=== PATIENT | male | born 1960 | race Caucasian/White ===

== ENCOUNTER 2020-11-07 07:31 | Emergency (ER) | payer BC, SELFPAY ==
[2020-11-07 07:31] VITALS: BP 162/100; PULSE 61; RESP 16; TEMP 36.7; O2SAT 98; BMI 40.1
[2020-11-07 07:35] VITALS: BP 162/109; PULSE 68; O2SAT 94
--- NOTE | 2020-11-07 07:46 | CT_ITS ---
PROCEDURE: CT ABDOMEN PELVIS W CON CLINICAL INDICATION: right testicle pressure and right flank pain COMPARISON: No exams were available for comparison TECHNIQUE: IV Contrast: 75ML Isovue 370 Oral Contrast None Axial images obtained with sagittal and coronal reformats. All CT scans at the facility use one or more dose reduction, viz: automated exposure control, ma/kV adjustment per patient size (including targeted exams where dose is matched to indication, i.e. head), or iterative reconstruction technique. FINDINGS: LOWER THORAX: There is elevation of the hemidiaphragm on both sides with atelectatic changes in the lung bases. ABDOMEN & PELVIS: Fatty liver. This is somewhat more prominent in the hepatic dome on the right. There is a hypodense lesion in the hepatic dome segment 7 measuring 15 mm with peripheral enhancement and may be due to a hemangioma. No other liver lesions evident. The spleen, adrenal glands, and pancreas have an unremarkable appearance. There is minimal dilatation of the right renal collecting system and ureter. There is a 2 mm stone along the right aspect of the urinary bladder at the trigone region consistent with a stone at the trigone/ureterovesical junction. Urinary bladder is contracted with mild thickening of the wall. No left renal or ureteral calculi are evident. There is a 13 mm right renal cyst in the upper pole. No intestinal obstruction or free air. There is given history of appendectomy. No evidence of diverticulitis. Mild prominence of the prostate at 4.9 cm. Prior vasectomy. Mild degenerative changes in the spine. Sclerotic focus is present in the left supra-acetabular region may be due to small bone island. There are small bilateral inguinal hernias containing fat IMPRESSION: 2 mm stone at the trigone of the urinary bladder on the right consistent with a stone at the UVJ or recently passed with mild dilatation of the right renal collecting system and ureter. Indeterminate 1.5 cm lesion of the right hepatic lobe possibly due to a hemangioma. Nonemergent MRI with hemangioma protocol may confirm Dictated by: Jaron Rodriguez MD 11/07/2020 10:32 Jaron Rodriguez MD in [place] 11/07/2020 10:32
[2020-11-07 08:00] LABS: Basophils # 0.1 K/mm3 (0-0.2); Basophils % 0.8 % (0.1-2.0); Eosinophils # 0.2 K/mm3 (0.0-0.4); Eosinophils % 2.5 % (0.1-12.0); Hematocrit 47.8 % (42.0-52.0); Hemoglobin 16.7 g/dL (14.1-18.0); Lymphocytes # 2.1 K/mm3 (0.7-4.5); Lymphocytes % 27.3 % (10-50); Mean Corpuscular HGB Conc 34.9 g/dL (31.8-35.4); Mean Corpuscular Hemoglobin 32.5 pg (27.0-31.2); Mean Platelet Volume 8.4 fl (7.4-10.4); Monocytes # 0.5 K/mm3 (0.1-1.0); Monocytes % 6.1 % (1.7-9.3); Neutrophils # 4.9 K/mm3 (1.8-7.8); Neutrophils % 63.4 % (37.0-80.0); Platelet Count 219 K/mm3 (142-424); Red Blood Count 5.14 M/mm3 (4.60-6.20); Red Cell Distribution Width 13.9 % (11.5-17.5); White Blood Count 7.7 K/mm3 (4.8-10.8)
[2020-11-07 08:04] LABS: Microscopic, Urine URINE MICROSCOPIC (MICROSCOPIC)
[2020-11-07 08:13] LABS: Appearance,Urine CLEAR (Clear); Bilirubin,Urine Negative (Negative); Blood, Urine TRACE-I (Negative); Color,Urine YELLOW (Yellow); Glucose,Urine (UA) Negative (Negative); Ketones,Urine Negative (Negative); Leukocyte Esterase,Urine Negative (Negative); Nitrate,Urine Negative (Negative); PH,Urine 5.5 (5.0-8.5); Protein,Urine Negative (Negative); Specific Gravity, Urine >= 1.030 (1.005-1.030); Urobilinogen,Urine 0.2 EU/dl (0.2)
--- NOTE | 2020-11-07 08:17 | PC.NURSE ---
NOTIFIED RADIOLOGY BEING ORDERED ON PATIENT
[2020-11-07 08:24] LABS: Alanine Aminotransferase 53 U/L (12-78); Albumin Level 4.7 g/dl (3.5-5.0); Albumin/Globulin Ratio 1.5 (1.1-1.8); Alkaline Phosphatase 111 U/L (38-126); Anion Gap 16.3 mEq/L (5-15); Aspartate Amino Transferase 34 U/L (17-59); Bilirubin,Total 0.8 mg/dl (0.2-1.3); Blood Urea Nitrogen 13 mg/dl (9-20); Calcium 9.4 mg/dl (8.4-10.2); Carbon Dioxide 25 mmol/L (22.0-30.0); Chloride 106 mmol/L (98-107); Creatinine Clearance Estimated 95 mL/min (50-200); Estimated Glomerular Filt Rate 48 ml/min (>60); GFR (African American) 58 ML/MIN (>60); Globulin 3.1 g/dL (1.3-3.2); Glucose 119 mg/dl (74-100); Potassium 4.3 mmoL/L (3.5-5.1); Sodium 143 mmol/L (136-145); Total Protein,Serum 7.8 g/dl (6.3-8.2)
--- NOTE | 2020-11-07 08:43 | PC.NURSE ---
CT STATED THEY HAVE A PROCEDURE ON THE TABLE IS WHY PATIENT HAS NOT WENT TO CT YET AT THIS TIME
[2020-11-07 09:00] VITALS: BP 143/71; PULSE 71; RESP 18; O2SAT 97
--- NOTE | 2020-11-07 09:03 | HMH.ITSTN ---
ct scan delayed due to coronary patient still on table.
--- NOTE | 2020-11-07 09:06 | PC.NURSE ---
Dr Lopez at bedside
--- NOTE | 2020-11-07 09:08 | HMH.EDUROGM ---
ED Disposition Clinical Impression: Renal colic on right side Disposition: Home, Self-Care Condition on Discharge: Good Instructions: DI for Kidney Stones Additional Instructions: fluids and see pcp and urology for follow up Prescriptions: Tamsulosin HCl [Flomax 0.4mg capsule] 0.4 mg PO HS #10 cap Transmission Status: Pending to [facility] Ketorolac Tromethamine [Toradol 10mg tablet] 10 mg PO Q6HP PRN #8 tab MDD 40mg/day PRN Reason: Moderate To Severe Pain Transmission Status: Pending to [facility] Referrals: Per Mcleod MD [Primary Care Provider] - - Critical Care Critical Care Time: No Attestation: On 11/07/20, the high probability of a clinically significant, sudden or life threatening deterioration of the following system(s) required my full and direct attention, intervention and personal management. The time I documented below is in addition to time spent performing reported procedures but includes the following listed in this critical care notation. Medical Decision Making - Medical Records Medical records reviewed: Yes: I reviewed the patient's medical records. - Nomi Inquiry Pt receiving controlled substance: No Vital Signs: 11/07/20 07:31 11/07/20 07:35 11/07/20 09:00 Temperature 98.1 F Temperature Source Oral Pulse Rate 68 71 Pulse Rate [Right] 61 Respiratory Rate 16 18 Blood Pressure 162/109 H 143/71 H Blood Pressure [Right Arm] 162/100 H Blood Pressure Mean 135 Blood Pressure Mean [Right Arm] 120 02 Sat by Pulse Oximetry 98 94 L 97 Oxygen Delivery Method Room Air Room Air - Lab Data Lab results reviewed: Yes: I reviewed the patient's lab results. Lab Results 11/07/20 07:45: WBC 7.7, RBC 5.14, Hgb 16.7, Hct 47.8, MCV 93.0, MCH 32.5 H, MCHC 34.9, RDW 13.9, Plt Count 219, MPV 8.4, Neut % (Auto) 63.4, Lymph % (Auto) 27.3, [place] % (Auto) 6.1, Eos % (Auto) 2.5, Baso % (Auto) 0.8, Neut # (Auto) 4.9, Lymph # (Auto) 2.1, [place] # (Auto) 0.5, Eos # (Auto) 0.2, Baso # (Auto) 0.1 11/07/20 07:45: Sodium 143, Potassium 4.3, Chloride 106, Carbon Dioxide 25, Anion Gap 16.3 H, BUN 13, Creatinine 1.50 H, Estimated Creat Clear 95, Estimated GFR 48 L, Est GFR ( Amer) 58 L, Glucose 119 H, Calcium 9.4, Total Bilirubin 0.8, AST 34, ALT 53, Alkaline Phosphatase 111, Total Protein 7.8, Albumin 4.7, Globulin 3.1, Albumin/Globulin Ratio 1.5 11/07/20 07:59: Urine Color Yellow, Urine Appearance Clear, Urine pH 5.5, Ur Specific [place] >= 1.030, Urine Protein Negative, Urine Glucose (UA) Negative, Urine Ketones Negative, Urine Blood Trace-i, Urine Nitrate Negative, Urine Bilirubin Negative, Urine Urobilinogen 0.2, Ur Leukocyte Esterase Negative, Urine RBC 3-5, Urine WBC 3-5, Ur Squamous Epith Cells 5-10, Urine Bacteria None Result diagrams: 11/07/20 07:45 11/07/20 07:45 Orders (Tests/Meds): ED MEDICATIONS Discontinued Medications Generic Name Dose Route Start Last Admin Trade Name Freq PRN Reason Stop Dose Admin Sodium Chloride 1,000 mls @ 999 mls/hr 11/07/20 08:00 11/07/20 07:55 Sod Chlor 0.9% 1000ml Bag IV 11/07/20 09:00 999 mls/hr .Q1H1M LILLIAM Administration Iopamidol 75 ml 11/07/20 09:54 11/07/20 09:54 Iopamidol-370 (76%);100ml Bottle IV 11/07/20 09:55 75 ml ONCE ONE Administration Ketorolac Tromethamine 30 mg 11/07/20 07:52 11/07/20 07:55 Ketorolac 30mg/Ml Vial IV 11/07/20 07:53 30 mg ONCE ONE Administration Ondansetron HCl 4 mg 11/07/20 07:52 11/07/20 07:55 Ondansetron 4mg/2ml Vial IV 11/07/20 07:53 4 mg ONCE ONE Administration - CT Data CT Scan: Abdomen, Pelvis Time Received: 10:[address] Reviewed: Yes: I have viewed the radiologist's interpretation Preliminary Findings: Abnormal (see report ) Medical Decision Narrative: will refer to urology and fluids Male Urogenital HPI - General Chief complaint: Urogenital-Male Stated complaint: possible kidney stones Time Seen by Provider:
--- NOTE | 2020-11-07 09:35 | PC.NURSE ---
PATIENT TO CT AT THIS TIME
--- NOTE | 2020-11-07 09:59 | PC.NURSE ---
Pt back from CT scan at this time.
[2020-11-07 10:50] VITALS: BP 154/71; PULSE 75; RESP 17; TEMP 36.8; O2SAT 97
== END 2020-11-07 11:00 | disposition home or self-care (01) ==
PROVIDERS: Family Medicine; Emergency Provider Emergency Medicine; PCP Family Medicine
DX: N23 Unspecified renal colic (principal); Z87.442 Personal history of urinary calculi; I10 Essential (primary) hypertension; E78.5 Hyperlipidemia, unspecified
CPT/HCPCS: 74177; 80053; 81001; 85025; 96365; 99283; J2405; Q9967

== ENCOUNTER 2023-12-03 07:50 | Day surgery (SDC) | payer BC, SELFPAY ==
--- NOTE | 2023-12-01 11:43 | SUR.PREOP ---
PREOP CALL ATTEMPTED. BOTH PT'S NUMBER AND CONTACT NUMBER DISCONNECTED.
--- OUTSIDE RECORDS SUMMARY | 2023-12-03 07:54 | XMS_ITS | Clinical Summary ---
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 Other infective (teno)synovitis , right wrist Infective (teno)synovi tis, right wrist (document bacterial agent) M65.131 (ICD-10-CM ) 10/13 Removed 10/13 Francheska Martinez Other infective (teno)synovitis , right wrist Radius, right, initial encounter, infection/in flammatory reaction due to internal fixation device T84.612A (ICD-10-CM ) 10/13 Inactive 10/13 Francheska Martinez Infection and inflammatory reaction due to internal fixation device of right radius, initial encounter Cellulitis of right wrist L03.113 (ICD-10-CM ) 10/13 Active 10/13 Francheska Martinez Cellulitis of right upper limb Medications Medication Instructions Start Date Stop Date Generic Name NDC Provider LINEZOLID 600 MG TABS Take 1 tablet by mouth twice daily LINEZOLID 11052609546 Alexi Kan MD. TEFLARO 600 MG SOLR q 12 HOURS/OPAT CEFTAROLINE FOSAMIL [id number] Georgina Christianson RN LINEZOLID 600 MG TABS Take 1 tablet by mouth twice daily LINEZOLID 85642324507 Alexi Kan MD. HYDROCODONE-ACET AMINOPHEN 5-325 MG TABS one tab p q6h prn for pain HYDROCODONE-ROSALBA TAMINOPHEN 58513157428 Alexi Kan MD. INDOMETHACIN ER 75 MG CR-CAPS one tab po bid INDOMETHACIN 47372980037 Alexi Kan MD. HYDROXYZINE HCL 25 MG TABS one tab po tid prn for itching HYDROXYZINE HCL 77498234754 Alexi Kan MD. TEFLARO 600 MG SOLR q 12 HOURS/OPAT CEFTAROLINE FOSAMIL 21371478968 Georgina Christianson RN CUBICIN RF SOLR Cubicin 500mg IV Q24hrs OPAT DAPTOMYCIN SOLR 18593413511 Alexi Kan MD. HYDROXYZINE HCL 25 MG TABS one tab po tid prn for itching HYDROXYZINE HCL 69287443307 Alexi Kan MD. CUBICIN RF SOLR Cubicin 500mg IV Q24hrs OPAT DAPTOMYCIN SOLR 27421354588 Georgina Christianson RN CEFTRIAXONE SODIUM (IV) SOLR Rocephin 2GM IV Q24hrs Inpat CEFTRIAXONE SODIUM SOLR 39664791635 Georgina Christianson RN CEFTRIAXONE SODIUM (IV) SOLR Rocephin 2GM IV Q24hrs Inpat CEFTRIAXONE SODIUM SOLR 52270648446 Margareth Turcios CUBICIN RF SOLR Cubicin 500mg IV Q24hrs Inpat DAPTOMYCIN SOLR 17460421773 Margareth Turcios HYDROCODONE-ACET AMINOPHEN 5-325 MG TABS one tab p q6h prn for pain HYDROCODONE-ROSALBA TAMINOPHEN 79985340647 Alexi Kan MD. INDOMETHACIN ER 75 MG CR-CAPS one tab po bid INDOMETHACIN 61441969679 Alexi Kan MD. ASPIRIN ADULT LOW DOSE 81 MG TBEC Once daily. ASPIRIN 36072625125 Alexi Kan MD. ATORVASTATIN CALCIUM 80 MG TABS 1/2 tab daily. ATORVASTATIN CALCIUM 79408857777 Alexi Kan MD. LISINOPRIL 10 MG TABS Once daily. LISINOPRIL [id number] Alexi Kan MD. Medications Administered No information available. Allergies, Adverse Reactions, Alerts Allergy Name Reaction Description Start Date Severity Statu s Provider DAPTOMYCIN rash Severe Active Alexi Kan MD. Results Date Name Value Unit Range Flag Description Lab Report: CK CPK 30 U/L 26-174 Creatine christina se [Enzymatic activity/volume] in Serum or Plasma Lab Report: CBC WITH AUTO DI FFERENTIAL IMMATUREGRAN 0.01 10*3/MM3 0.00-0.03 Immature granulocytes [#/volume] in Blood BASO# 0.05 10*3/mm3 0.00-0.20 Basophils [#/vol ume] in Blood EOS ABSLT 0.30 10*3/uL 0.00-0.30 Eosinophi ls [#/volume] in Blood MONOSCT AUTO 0.61 10*3/uL 0.00-1.00 Monocy filiberto [#/volume] in Blood by Automated count LYMPHCT AUTO 1.74 10*3/mm3 0.60-4.80 Lymph ocytes [#/volume] in Blood by Automated count ABS NEUTROPH 3.75 10*3/uL 1.50-8.30 Neutro phils [#/volume] in Blood IMM GRANU % 0.2 % 0.0-0.6 Immature granulocytes/100 leukocytes in Blood [id number]-GE-[id number] 0.8 % 0.0-1.0 GE use only - for [employer] import when terms are not otherwise specified % EOS AUTO 4.6 % 0.0-3.0 H Eosinophil s/100 leukocytes in Blood by Automated count MONOCYTE BF 9.4 % 0.0-12.0 monocyte s as percent of body fluid leukocytes LYMPHOCY BF 26.9 % 24.0-44.0 lymphoc ytes as percent of body fluid leukocytes PMN % 58.1 % 41.0-71.0 Neutrophils /100 leukocytes in Blood by Automated count PLATELETS 179 10*3/mm3 150-450 Platelets [#/volume] in Blood by Automated count RDW_ 13.0 11.3-14.5 RDW, no uni ts MCHC 33.7 G/DL 32.0-36.0 MCHC [Mass/ volume] by Automated count MCH 31.4 pg 27.0-31.0 H MCH [Entiti c mass] by Automated count MCV 93.3 fL 80.0-99.0 MCV [Entiti c volume] by Automated count HCT 38.9 % 38.9-50.9 Hematocrit [Volume Fraction] of Blood by Automated count HGB 13.1 g/dL 13.1-17.5 Hemoglobin [Mass/volume] in Blood RBC 4.17 10*6/mm3 4.20-5.76 L Erythrocyt es [#/volume] in Blood by Automated count WBC 6.46 10*3/mm3 3.50-10.8 0 Leukocytes [#/volume] in Blood by Automated count Lab Report: SEDIMENTATION RA TE ESR 24 mm/h 0-20 H Erythrocyte sedimentation rate by Westergren method Lab Report: C-REACTIVE PROTE IN CRP 0.19 mg/dL 0.00-1.00 C reactive protein [Mass/volume] in Serum or Plasma Lab Report: COMPREHENSIVE NH TABOLIC PANEL ANIONGAP 6.0 mmol/L 3.0-11.0 anion gap, serum BUN/CREAT 12.5 7.0-25.0 Urea nitrogen/Creatinine [Mass Ratio] in Serum or Plasma GFRC 58 mL/min/1. 73m2 >60 L Glomerular Filtration Rate Calculation BILI TOTAL 0.7 mg/dL 0.3-1.2 Bilirubin. total [Mass/volume] in Serum or Plasma ALK PHOS 83 U/L 25-100 Alkaline amelia sphatase [Enzymatic activity/volume] in Blood SGOT (AST) 16 U/L 0-33 Aspartate aminotransferase [Enzymatic activity/volume] in Serum or Plasma SGPT (ALT) 17 U/L 7-40 Alanine aminotransferase [Enzymatic activity/volume] in Serum or Plasma ALBUMIN 3.81 g/dL 3.20-4.80 Albumin [Mass/volume] in Serum or Plasma PROTEIN, TOT 6.8 g/dL 5.7-8.2 Protein [Mass/volume] in Serum or Plasma CALCIUM 9.1 mg/dL 8.7-10.4 Calcium [Moles/volume] in Serum or Plasma CO2 27.0 mmol/L 20.0-31.0 Carbon diox orquidea, total [Moles/volume] in Venous blood CHLORIDE 108 mmol/L 99-109 Chloride [Moles/volume] in Serum or Plasma POTASSIUM 4.2 mmol/L 3.5-5.5 Potassium [Moles/volume] in Serum or Plasma SODIUM 141 mmol/L 132-146 Sodium [Moles/volume] in Serum or Plasma CREATININE 1.28 mg/dL 0.60-1.30 Creatini ne [Mass/volume] in Serum or Plasma BUN 16 mg/dL 9-23 Urea nitrogen [Mass/volume] in Serum or Plasma GLUCOSE SER 63 mg/dL 70-100 L Glucose [Mass/volume] in Serum or Plasma Office Visit: 7 MEDS REVIEW Done Documenta tion of current medications (procedure) DIET TRAFFIC CONTROL OFFICER yes Dietary management education, guidance, and counseling (procedure) ORALTOBACUSE Never Tobacco smoking status SMOK STATUS Never smoker Tobacco smoking status Plan of Care Type Date Detail Pending order Discontinue oral antibiotics Pending order Continue oral an tibiotics Pending order CMP Pending order CBC with Differe ntial Pending order C- reactive prot ein Pending order Sedimentation Ra te (ESR) Pending order New Oral Antibio tic Pending order Discontinue IV a ntibiotics Pending order PICC Removal Pending order Continue IV anti biotics Pending order Weekly Labs (Con tinue) Pending order Weekly PICC Line Care Pending order Teflaro Pending order Continue IV anti biotics Pending order Weekly Labs (Con tinue) Pending order Weekly PICC Line Care Pending order Teflaro Pending order CBC with Differe ntial Pending order CMP Pending order Sedimentation Ra te (ESR) Pending order C- reactive prot ein Pending order Continue IV anti biotics Pending order Weekly Labs (Con tinue) Pending order Weekly PICC Line Care Pending order Teflaro Pending order C-Diff PCR Pending order Continue IV anti biotics Pending order Weekly Labs (Con tinue) Pending order Weekly PICC Line Care Pending order Teflaro Pending order New IV antibioti c Pending order CMP Pending order CBC with Differe ntial Pending order C- reactive prot ein Pending order Sedimentation Ra te (ESR) Pending order Weekly Labs (Con tinue) Pending order Weekly PICC Line Care Pending order Stat Weekly Labs Pending order Stat Weekly Labs Pending order Daptomycin Pending order CMP Pending order CBC with Differe ntial Pending order C- reactive prot ein Pending order CPK Pending order Sedimentation Ra te (ESR) Pending order Continue IV anti biotics Pending order PIV/Butterfly Pending order Daptomycin Pending order Ceftriaxone Pending order New IV antibioti c Pending order PIV/Butterfly Pending order Daptomycin Pending order Ceftriaxone Pending order Stat Weekly Labs Patient education WEIGHT%20MANAG EMENT Patient education WEIGHT%20MANAG EMENT Patient education WEIGHT%20MANAG EMENT Patient education WEIGHT%20MANAG EMENT Patient education Ceftaroline%20 (Injection)%20(Injectable) Patient education Ceftriaxone%20 (Injection)%20(Injectable) Patient education Daptomycin%20( Injection)%20(Injectable) Patient education Ceftriaxone%20 (Injection)%20(Injectable) Patient education Daptomycin%20( Injection)%20(Injectable) Procedures Code Procedure Name Date Entry Date CPT-Cooral Continue oral antibiotics 20 18/11/24 CPT-56048 CMP [id number] CBC with Differential 2017 CPT-06075 C- reactive protein CPT-45156 Sedimentation Rate (ESR) 201 12/08/24 CPT-ron New Oral Antibiotic CPT-DC Discontinue IV antibiotics 2 CPT-PICREM PICC Removal CPT-ca Continue IV antibiotics 2017 CPT-cwl Weekly Labs (Continue) 11/13 CPT-wpc Weekly PICC Line Care 2018/0 11/13 CPT-J0712 Teflaro CPT-ca Continue IV antibiotics 2017 CPT-cwl Weekly Labs (Continue) 11/06 CPT-wpc Weekly PICC Line Care 2018/0 11/06 CPT-J0712 Teflaro [id number] CBC with Differential 2017 CPT-86829 CMP CPT-16659 Sedimentation Rate (ESR) 201 12/08/04 CPT-18769 C- reactive protein CPT-ca Continue IV antibiotics 2017 CPT-cwl Weekly Labs (Continue) 10/28 CPT-wpc Weekly PICC Line Care 0 10/28 CPT-J0712 Teflaro CPT-cdpcr C-Diff PCR CPT-ca Continue IV antibiotics 2017 CPT-cwl Weekly Labs (Continue) 10/23 CPT-wpc Weekly PICC Line Care 0 10/23 CPT-J0712 Teflaro CPT-luis armadno New IV antibiotic CPT-30129 CMP [id number] CBC with Differential 2017 CPT-75991 C- reactive protein CPT-42639 Sedimentation Rate (ESR) 201 12/08/19 CPT-cwl Weekly Labs (Continue) 10/21 CPT-wpc Weekly PICC Line Care 0 10/21 CPT- stat weekly Stat Weekly Labs CPT- stat weekly Stat Weekly Labs CPT-J0878 Daptomycin CPT-83652 CMP [id number] CBC with Differential 2017 CPT-17404 C- reactive protein [id number], [id number] CPK CPT-85978 Sedimentation Rate (ESR) 201 12/08/11 CPT-ca Continue IV antibiotics 2017 CPT-36969 PIV/Butterfly CPT-J0878 Daptomycin CPT-J0696 Ceftriaxone CPT-luis armando New IV antibiotic CPT-20517 PIV/Butterfly CPT-J0878 Daptomycin CPT-J0696 Ceftriaxone CPT- stat weekly Stat Weekly Labs Vital Signs Date Name Value Unit Description BMI (Body Mass Index) 36.87 kg/m2 Bod y Mass Index (Ratio) Body Temperature 98.96 [degF] temperat ure E&M BP Diastolic 88 mm[Hg] blood pressu re, diastolic BP Systolic 158 mm[Hg] blood pressur e, systolic Heart Rate 86 /min pulse rate Height 70 [in_us] height E&M Respiratory Rate 14 /min respirat ory rate E&M Weight Measured 257 [lb_av] weight E& M Immunizations No information available. Advance Directives Directive Description Start Date PATIENT DOES NOT HAVE ADVANCED DIRECTIVE S.
[2023-12-03 08:13] VITALS: BP 151/81; PULSE 65; RESP 18; TEMP 36.4; O2SAT 97; BMI 36.1
[2023-12-03] MEDS: LACTATED RINGERS 1000ML 1,000 ML 25 ML IV (08:13)
[2023-12-03 08:57] VITALS: O2SAT 97
--- NOTE | 2023-12-03 09:03 | P.PNANES_ITS ---
[facility] Disclaimer: The information contained in this section may have been updated after the patient was seen, as this information can be updated by other users. Medical History (Updated 12/03/23 @ 08:10 by Sadaf Denis RN) Hyperlipidemia Hypertension Family History (Updated 12/03/23 @ 08:10 by Sadaf Denis RN) Other Prostate cancer Social History (Updated 12/03/23 @ 08:11 by Sadaf Denis RN) Smoking Status: Never smoker alcohol intake: current substance use type: denies use current occupational status: retired Travel in the last 8 weeks: None caffeine: No [facility] Anesthesia Checklist Patient Identification Patient Identification: Arm Band Structural Data Admitted From: Home Planned Operative Procedure/s: colonoscopy Consent for Planned Operative Procedure(s) Verified: Yes Verified Documents: Surgical Consent NPO Status Verified Time NPO: 00:00 Additional verifications Anesthesia Reactions: No Airway Assessment Mallampati Score:: Class II C-Spine Mobility Assessed: Yes TMJ Mobility Assessed: Yes Dentition: Good Dentition Neurological Assessment Level of Consciousness: Awake, Alert and Appropriate Anesthesia Plan Anesthesia Risk discussed: Yes Anesthesia Plan: Verified ASA Class: II Anesthesia Type: MAC
--- NOTE | 2023-12-03 09:13 | HMH.SCOPE ---
Procedure: Date: 12/03/23 Patient Date of :: 1960 Procedure Performed:: Screening colonoscopy Indications:: Personal history of polyps Performing Provider:: Sudhir Bray MD Referring Provider:: Per Mcleod MD Sedation:: Propofol Procedure:: After placing the patient in the left lateral decubitus position, the colonoscopy was gently inserted into the rectum and under direct visualization advanced to the cecum which was identified by transillumination in the right lower quadrant, identification of the ileocecal valve, appendiceal orifice, and cecal strap. Color, texture, mucosa, and anatomy of the colon were carefully examined with the scope. Findings:: Anal canal: normal Rectum: normal Sigmoid colon: normal without polyps or inflammatory changes, few scattered diverticuli noted Descending colon: normal without polyps or inflammatory changes Splenic flexure: normal Transverse colon: normal without polyps or inflammatory changes Hepatic flexure: normal Ascending colon: normal without polyps or inflammatory changes Cecum: normal Terminal ileum: not visualized Impression: Normal colonoscopy Scattered diverticulosis Recommendations:: Follow up examination in about FIVE years or so, sooner if clinically indicated in view of history of polyps. Complications:: None Estimated blood obtained (mL): 0 Colonoscopy Component Colonoscopy Component Was a colonoscopy performed during today's procedure?: Yes Recommended follow up colonoscopy of at least 10 years?: No If no, follow up colonoscopy recommended in ___ years?: Five Reason for not recommending >/= 10 yr follow-up interval?: History of polyps
[2023-12-03 09:15] VITALS: BP 96/69; PULSE 61; RESP 18; TEMP 36.7; O2SAT 93
[2023-12-03 09:25] VITALS: BP 95/57; PULSE 57; RESP 18; O2SAT 92
[2023-12-03 09:35] VITALS: BP 118/75; PULSE 51; RESP 16; O2SAT 95
[2023-12-03 09:45] VITALS: BP 113/68; PULSE 50; RESP 16; O2SAT 98
== END 2023-12-03 09:48 | disposition home or self-care (01) ==
PROVIDERS: PCP Family Medicine; Visit Provider Internal Medicine Gastroenterology
PROC: (CPT 45378; principal; 2023-12-03 09:00)
DX: Z12.11 Encounter for screening for malignant neoplasm of colon (principal)
CPT/HCPCS: 45378; J7120